=== PATIENT | male | born 1950 | race Caucasian/White ===

== ENCOUNTER 2021-05-22 18:07 | Outpatient (CLI) | payer MEDICARE, SELFPAY ==
[2021-05-22 18:12] VITALS: BP 158/85; PULSE 73; RESP 16; TEMP 36.4; O2SAT 100; BMI 26.9
[2021-05-22] MEDS: 0.9% Saline Lock 10 ML Syringe IV (18:17)
[2021-05-22 18:49] VITALS: BP 121/76; PULSE 64; RESP 16; TEMP 36.9; O2SAT 100
[2021-05-22 19:42] VITALS: BP 151/89; PULSE 64; TEMP 36.9; O2SAT 99
== END 2021-05-22 19:53 | disposition home or self-care (01) ==
LOC: MS3OUT 18:07 → MS3 18:07
PROVIDERS: Referring Provider Nurse Practitioner Adult Health; Visit Provider Nurse Practitioner Adult Health
DX: U07.1 COVID-19 (principal)
CPT/HCPCS: J7050; M0245; Q0245; A4216